=== PATIENT | male | born 1985 | race Caucasian/White ===

== ENCOUNTER 2023-07-27 08:47 | Outpatient (CLI) | payer OTHER, SELFPAY ==
[2023-07-27 12:52] LABS: Semen Viscosity Increased (Not Increa.)
[2023-07-27 12:53] LABS: Semen Color Opaque (Grey-opaque); Semen Immotility 20 %; Semen Non-Progressive Motility 20 %; Semen Progressive Motility 60 % (>32); Semen Total Motility 80 (>40% (PM+NP))
[2023-07-27 12:54] LABS: Semen Morphology Result to Follow; Sperm Count 121.5 Mil/mL (60-150 million/mL)
[2023-07-30 22:58] LABS: Fructose, Semen 421 mg/dL (150-600)
== END 2023-07-27 08:48 | disposition home or self-care (01) ==
PROVIDERS: PCP Family Medicine; Visit Provider Family Medicine
DX: N46.9 Male infertility, unspecified (principal)
CPT/HCPCS: 82757; 88160; 89320

== ENCOUNTER 2023-08-17 14:47 | Emergency (ER) | payer OTHER, SELFPAY ==
[2023-08-17 15:10] VITALS: BP 140/82; PULSE 97; RESP 18; TEMP 36.2; O2SAT 98
--- NOTE | 2023-08-17 16:02 | ED.URI ---
HPI - URI/Sore Throat General Chief Complaint: Upper Respiratory Infection Stated Complaint: sorethroat,bilateral ear discomfort Time Seen by Provider: 08/17/23 15:56 Source: patient and RN notes reviewed Mode of arrival: ambulatory Limitations: no limitations History of Present Illness HPI Narrative: Patient presents today with a one-week history of sore throat, bilateral ear pain, pressure, and muffling, postnasal drip, nasal congestion. Denies fever. Has tried Mucinex with mild relief. Currently rates his pain 2/10. Related Data Home Medications Medication Instructions Recorded Confirmed lisinopril 30 mg tablet 30 mg AC 08/17/23 08/17/23 Allergies Allergy/AdvReac Type Severity Reaction Status Date / Time No Known Allergies Allergy Verified 08/17/23 15:41 Review of Systems Review of Systems: CONSTITUTIONAL: Denies body aches, fever, chills, or sweats. EYES: Denies visual changes, redness, or discharge. ENT: Denies rhinorrhea. + congestion, postnasal drip, bilateral ear pain and pressure, sore throat CARDIOVASCULAR: Denies chest pain, palpitations, or edema. RESPIRATORY: Denies cough or dyspnea. GASTROINTESTINAL: Denies abdominal pain, nausea, vomiting, or diarrhea. GENITOURINARY: Denies dysuria or hematuria. SKIN: Denies rash, itching, or wounds. MUSCULOSKELETAL: Denies back pain, joint pain, or myalgia. NEUROLOGIC: Denies headache, numbness, tingling, or weakness. PSYCH: Denies depression or anxiety. PMFSH Comments At time of signature, I have reviewed and agree with nursing past medical, surgical, social and family history unless otherwise noted. Please see nursing chart for further information. There is no relevant family history pertinent to the presenting complaint Exam Narrative: GENERAL: Well-appearing, well-nourished, and in no acute distress. HEAD: Normocephalic, atraumatic. EYES: EOMI. No redness or drainage. Conjunctivae normal. ENT: Mucous membranes pink and moist. Nares congested. No rhinorrhea. Right TM normal. Left TM erythematous. Throat mildly erythematous without edema or exudate. Uvula midline. NECK: Normal AROM. Supple. No lymphadenopathy. CHEST: No respiratory distress. Clear to auscultation. HEART: Regular rate and rhythm. No murmur appreciated. EXTREMITIES: Normal range of motion. No edema. SKIN: Warm, dry, no rash. Capillary refill normal. Normal skin turgor. NEURO: No focal deficits. Alert and oriented x3. Gait steady. PSYCH: Normal affect. No signs of depression or anxiety. Course Course Level of Care: Express Care Visit Vital Signs Vital signs: Vital Signs Temperature 97.2 F L 08/17/23 15:10 Pulse Rate 97 08/17/23 15:10 Respiratory Rate 18 08/17/23 15:10 Blood Pressure 140/82 08/17/23 15:10 Pulse Oximetry 98 08/17/23 15:10 Oxygen Delivery Room Air 08/17/23 15:10 Temperature 97.2 F L 08/17/23 15:10 Pulse Rate 97 08/17/23 15:10 Respiratory Rate 18 08/17/23 15:10 Blood Pressure 140/82 08/17/23 15:10 Pulse Oximetry 98 08/17/23 15:10 Oxygen Delivery Room Air 08/17/23 15:10 Reviewed MDM - URI/Sore Throat MDM Narrative Medical decision making narrative: Patient will be treated with Augmentin for left otitis media. No testing indicated at this time. Anticipatory guidance given. Differential Diagnosis Differential diagnosis: Likely upper respiratory infection, otitis media, sinusitis and viral infection Critical Care Time Critical Care Time Critical Care Time: No Discharge Plan Discharge Clinical Impression: Acute left otitis media Upper respiratory infection Qualifiers: URI type: unspecified URI Qualified Code(s): J06.9 - Acute upper respiratory infection, unspecified Patient Disposition: Home, Self-Care Condition: Stable Instructions: Antibiotic Form, Ear Infection (GEN), Upper Respiratory Infection (DC) Additional Instructions: Please take the Augmentin as prescribed until gone. C
== END 2023-08-17 16:13 | disposition home or self-care (01) ==
PROVIDERS: Emergency Provider Nurse Practitioner; PCP Family Medicine
DX: H66.92 Otitis media, unspecified, left ear (principal); J06.9 Acute upper respiratory infection, unspecified
CPT/HCPCS: 99213; G0463

== ENCOUNTER 2025-03-31 10:45 | Emergency (ER) | payer OTHER, SELFPAY ==
--- OUTSIDE RECORDS SUMMARY | 2025-03-31 10:50 | XMS_ITS | Clinical Summary ---
Author Organization [facility] Address [facility] [place] [address] Care Team Providers Care Hydraulic Engineer Name Role Phone Nick Bailey MD Primary Care Provider [phone] Allergies Active Allergy Reactions Criticality Noted Date Comments Poison Reina Extract Rash Low 03/07/2020 Medications lisinopril (PRINIVIL) 30 MG tablet Take 1 tablet (30 mg total) by mouth daily. 01/29/2023 Active Active Problems No known active problems Encounters Date Type Department Care Team Description 03/16/2025 12:29 PM CDT - 03/16/2025 1:54 PM CDT Emergency [facility] Emergency Room [address] [place] [address] Samantha Sultana MD Confirmed Coronavirus (Covid-19) Discharge Disposition: Home or Self Care (Routine Discharge) 03/16/2025 Travel from Last 3 Months Family History Medical History Relation Comments Hypertension Father Relation Status Comments Father Alive Mother Alive Social History Tobacco Use Types Packs/Day Years Used Date Smoking Tobacco: Never Passive Smoke Exposure: Never Smokeless Tobacco: Never Alcohol Use Standard Drinks/Week Comments Not Currently 0 (1 standard drink = 0.6 oz pur e alcohol) socially PHQ-2 Answer Date Recorded Patient Health Questionnaire-2 Score 0 09/08/2023 Sex and Gender Information Value Date Recorded Sex Assigned at Male 03/16/2025 12:51 PM CDT Legal Sex Male 7:28 PM CDT Gender Identity Not on file Sexual Orientation Not on file 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 file Not on file Not on file Last Filed Vital Signs Vital Sign Reading Time Taken Comments Blood Pressure 148/91 03/16/2025 12:35 PM CDT Pulse 89 03/16/2025 12:35 PM CDT Temperature 38.2 C (100.7 F) 03/16/2025 1:00 PM CDT Respiratory Rate 18 03/16/2025 1:00 PM CDT Oxygen Saturation 98% 03/16/2025 1:00 PM CDT Inhaled Oxygen Concentration - - Weight 113 kg (249 lb 1.9 oz) 03/16/2025 12:35 P M CDT Height 177.8 cm (5' 10) 03/16/2025 12:35 PM CDT Body Mass Index 35.74 03/16/2025 12:35 PM CDT Plan of Treatment Health Maintenance Due Date Last Done Comments Annual Physical 1988 Hepatitis C 2003 DTaP, Tdap and Td Vaccines (1 - Tdap) 2004 02/02/1991, 03/20/1989, 06/05/1988, Additional history exists HPV Vaccines (1 - 3-dose SCDM series) 2012 COVID-19 Vaccine ( season) 2024 05/31/2023, 09/03/2021, 12/09/2020, Additional history exists Hepatitis B Vaccines Completed 03/16/2000, 10/14/1999, 09/09/1999 Meningococcal B Vaccine Aged Out No l onger eligible based on patient's age to complete this topic Meningococcal Vaccine Aged Out No marlin vika eligible based on patient's age to complete this topic Pneumococcal Vaccine: Pediatrics (0 to 5 Years) and At-Risk Patients (6 to 49 Years) Aged Out No longer eligible based on patient's age to complete this topic RSV Immunizations Under 20 Months Aged Out No longer eligible based on patient's age to complete this topic Procedures Procedure Name Priority Date/Time Associated Diagnosis Comments CBC W/DIFF AUTOMATED STAT 03/16/2025 12:55 PM CDT BASIC METABOLIC PANEL STAT 03/16/2025 12:55 PM CDT CORONAVIRUS (COVID 19) STAT 03/16/2025 12:52 PM CDT INFLUENZA A & B STAT 03/16/2025 12:52 PM CDT from Last 3 Months Results * (ABNORMAL) BASIC METABOLIC PANEL (03/16/2025 12:55 PM CDT) GLUCOSE 99 70 - 99 MG/DL 03/16/2025 1:11 PM CDT [facility] BUN 12 7 - 18 MG/DL 03/16/2025 1:11 PM CDT [facility] CREATININE S/P/B 0.99 0.7 - 1.3 MG/DL 03/16/2025 1:11 PM CDT [facility] SODIUM S/P/B 138 136 - 145 MMOL/L 03/16/2025 1:11 PM T [facility] POTASSIUM S/P/B 4.3 3.5 - 5.1 MMOL/L 03/16/2025 1:11 PM T [facility] CHLORIDE S/P/B 105 100 - 108 MMOL/L 03/16/2025 1:11 PM T [facility] CO2 29.4 21 - 32 MMOL/L 03/16/2025 1:11 PM T [facility] CALCIUM S/P/B 8.6 8.5 - 10.1 MG/DL 03/16/2025 1:11 PM T [facility] ANION GAP 3.6(L) 5 - 15 MMOL/L 03/16/2025 1:11 PM T [facility] BUN CREATININE RATIO 12.1 6 - 26 03/16/2025 1:11 PM T [facility] GFR ESTIMATE >90 >90 ML/MIN/1.7 3 M2 03/16/2025 1:11 PM T [facility] Comment: NOTE: eGFR is not calculated for patients <18 years of age. This is an estimated GFR calculation using the new CKD EPI creatinine equation without race and so does not require a correction factor for race. This estimated GFR should not be used for calculating drug doses. 03/16/2025 12:5 5 PM CDT us Samantha Sultana MD LABORATORY Final Resu lt [facility] [address] [facility] [place] [address], [place] [phone] * (ABNORMAL) CBC W/DIFF AUTOMATED (03/16/2025 12:55 PM CDT) WBC 7.22 4.4 - 11.0 x10'3/uL 03/16/2025 1:02 PM CDT [facility] RBC 4.45(L) 4.50 - 5.90 x10'6/uL 03/16/2025 1:02 PM CDT [facility] HGB 13.4(L) 14.0 - 17.5 G/DL 03/16/2025 1:02 PM CDT [facility] HCT 39.6(L) 41.5 - 50.4 % 03/16/2025 1:02 PM CDT [facility] MCV 89.0 80.0 - 96.0 FL 03/16/2025 1:02 PM CDT [facility] MCH 30.1 26.5 - 31.4 PG 03/16/2025 1:02 PM CDT [facility] MCHC 33.8 31.9 - 34.8 G/DL 03/16/2025 1:02 PM CDT [facility] RDW 12.7 12.3 - 14.3 % 03/16/2025 1:02 PM CDT [facility] PLT 189 151 - 353 x10'3/uL 03/16/2025 1:02 PM CDT [facility] MPV 9.3(L) 9.7 - 11.9 FL 03/16/2025 1:02 PM CDT [facility] RBC MORPHOLOGY NORMAL 03/16/2025 1:02 PM CDT [facility] PLT MORPH. NORMAL 03/16/2025 1:02 PM CDT [facility] WBC MORPHOLOGY NORMAL 03/16/2025 1:02 PM CDT [facility] LYMPHOCYTES % 12.3(L) 15.8 - 45.0 % 03/16/2025 1:02 PM CDT [facility] NEUTROPHILS % 76.8(H) 42.1 - 71.9 % 03/16/2025 1:02 PM CDT [facility] MONOCYTES % 7.8 5.7 - 12.5 % 03/16/2025 1:02 PM CDT [facility] EOSINOPHILS 2.4 0.0 - 5.6 % 03/16/2025 1:02 PM CDT [facility] BASOPHILS 0.4 0.0 - 1.3 % 03/16/2025 1:02 PM CDT [facility] ABS. NEUTROPHILS 5.55 1.40 - 6.00 x10'3/uL 03/16/2025 1:02 PM CDT [facility] IMMATURE GRANS % 0.3 0.0 - 0.5 % 03/16/2025 1:02 PM CDT [facility] ABS. LYMPHOCYTES 0.89 0.80 - 4.70 x10'3/uL 03/16/2025 1:02 PM CDT [facility] 03/16/2025 12:5 5 PM CDT us Samantha Sultana MD LABORATORY Final Resu lt [facility] [address] [place] [address], [place] [phone] * (ABNORMAL) CORONAVIRUS (COVID-19) MOLECULAR (03/16/2025 12:52 PM CDT) Pathologist [facility] CORONAVIRUS SARS COV 2 RNA POSITIVE( AA) NEGATIVE 03/16/2025 1:15 PM CDT [facility] Comment: THE ID NOW COVID-19 2.0 TEST HAS BEEN AUTHORIZED BY THE FDA UNDER EAU FOR USE BY AUTHORIZED LABORATORIES. PERFORMED BY NUCLEIC ACID AMPLIFICATION FOR MOLECULAR QUALITATIVE DETECTION OF SARS-COV-2. SPECIMEN TYPE NASAL 03/16/2025 12:52 PM CDT [facility] NASOPHARYNGEAL SWAB / Unknown 03/16/2025 12:52 PM CDT us Samantha Sultana MD MICROBIOLOGY - GENERAL ORD ERABLES Final Result Performing Organization Address City/[facility]/ZIP Co de Phone Number [facility] [address] [place] [address], [place] [phone] * INFLUENZA A & B (03/16/2025 12:52 PM CDT) [facility] SPECIMEN TYPE [phone] 03/16/2025 1:19 PM CDT [facility] INFLUENZA A NEGATIVE NEGATIVE 03/16/2025 1:19 PM CDT [facility] INFLUENZA B NEGATIVE NEGATIVE 03/16/2025 1:19 PM CDT [facility] NASAL NASOPHARYNGEAL SWAB / Unknown 03/16/2025 12:52 PM CDT us Samantha Sultana MD MICROBIOLOGY - GENERAL ORD ERABLES Final Result Performing Organization Address City/[facility]/ZIP Co de Phone Number [facility] [address] [place] [address], [place] [phone] from Last 3 Months Additional Health Concerns Infection Onset Date Last Indicated COVID-19 Confirmed 03/16/2025 03/16/2025 Insurance [facility] Care Teams Hydraulic Engineer Relationship Specialty Start Date End Date Nick Bailey MD [address] [facility] [place] [address] PCP - General FAMILY PRACTICE 03/07/20
--- OUTSIDE RECORDS SUMMARY | 2025-03-31 10:50 | XMS_ITS | Encounter Summary ---
Author Organization [facility] Address [address] [place] [address] Care Team Providers Care Trade Mark Attorney Name Role Phone Nick Bailey MD Primary Care Provider [phone] Nick Bailey MD Unavailable Encounter Details Date Type Department Care Team (Late st Contact Info) Description 06/21/2020 Lab Requisition [facility] [address] [facility] [place] [id number] Joy Shah MD [address] 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 Gender Identity Not on file Sexual Orientation Not on file documented as of this encounter Plan of Treatment Not on file documented as of this encounter Procedures Procedure Name Priority Date/Time Associated Diagnosis Comments DERMATOPATHOLOGY Routine 06/21/2020 12:0 0 AM CDT documented in this encounter Results * DERMATOPATHOLOGY (06/21/2020 12:00 AM CDT) Case Report Dermatopathology Report Case: [id number] Authorizing Provider: Joy Shah MD Collected: 06/21/2020 12:00 AM Ordering Location: [facility] Received: 06/21/2020 11:13 AM Pathologist: Sarah Ontiveros MD Specimen: Skin, left knee 0 3:24 PM CDT DERMATOPATHOLOGY LABORATORY Final Diagnosis Specimen A. 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 0 3:24 PM CDT DERMATOPATHOLOGY LABORATORY Gross Description Specimen A: Received is one formalin filled container labeled with the patient's name and designated left knee. The specimen consists of a shave measuring [id number]. Jar 0. 0 3:24 PM CDT DERMATOPATHOLOGY LABORATORY Microscopic Description Specimen A. SKIN, left knee: This is a dome-shaped lesion in which homogenized eosinophilic ribbons of collagen interweave and intervening spindled fibroblast with scattered pleomorphic ones that are highlighted on Factor XIIIA and focally with CD68. MART-1/Melan A does hot highlight the spindled cells. There is a brisk lymphohistiocytic infiltrate within the dermis. 0 3:24 PM CDT DERMATOPATHOLOGY LABORATORY Disclaimer An external and internal positive and negative controls are appropriate for the histochemical, immunohistochemical and immunofluorescence stain(s) in this case (if any), except where stated explicitly. The performance characteristics of the stain(s) cited in this report were developed and its performance characteristic determined by the Dermatopathology Laboratory at [facility], directed by Dr. Yadi Ontiveros. These tests need not be, and therefore are not, approved by the [place] Food and Drug Administration. The tests are used for clinical purposes. Billing Codes Specimen Charges Stain Charges 54851 1 75183 [id number] 1 1 1 0 3:24 PM CDT DERMATOPATHOLOGY LABORATORY Embedded Images 0 3:24 PM CDT DERMATOPATHOLOGY LABORATORY Pathology/Cytolog y TISSUE SPECIMEN FROM SKIN / Unknown 06/21/2020 06/21/2020 11:13 AM CDT Joy Shah MD LAB - PATHOLOGY/CYTOLOGY ORD ERABLES Final Result DERMATOPATHOLOGY LABORATORY [facility] - Department of Dermatology [facility] [address] [place] [address], [address] [phone] documented in this encounter Visit Diagnoses Not on filedocumented in this encounter Care Teams Trade Mark Attorney Relationship Specialty Start Date End Date Nick Bailey MD [address] [place] [address] PCP - General Family Medicine 01/30/17 Nick Bailey MD [address] [place] [address] 01/30/17 documented as of this encounter
--- OUTSIDE RECORDS SUMMARY | 2025-03-31 10:50 | XMS_ITS | Clinical Summary ---
Author Organization [facility] Address [address] [facility] [place] [address] Care Team Providers Care Rayon Winder Name Role Phone Nick Bailey MD Primary Care Provider [phone] Nick Bailey MD Unavailable Source Comments [facility],non-owned Affiliates and Associated Physician Practices is amultiple site organization consisting of ambulatory clinics and hospital sitesin [place], [place], [place] and [place]. This disclosure is being madepursuant to the Care Everywhere program and may not contain all information available regarding this patient. Last updated 18.[facility] Allergies No known active allergies Medications * Be aware that medications may not be up to date on this document. Alwaysverify current medications with the patient. methylPREDNISol one (MEDROL DOSEPAK) 4 MG tabletIndicatio ns:Acute maxillary sinusitis, recurrence not specified Take by mouth as directed Use dose pack of 4mg tabs, start 24 mg/day, taper by 4mg/day over 6 days per pkg instructions. Take with food. 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 Gender Identity Not on file Sexual Orientation Not on file Last Filed Vital Signs Vital Sign Reading Time Taken Comments Blood Pressure 140/88 02/03/2020 3:34 PM CDT Pulse 70 02/03/2020 3:34 PM CDT Temperature 36.8 C (98.3 F) 02/03/2020 3:34 PM CDT Respiratory Rate 20 02/03/2020 3:34 PM CDT Oxygen Saturation 99% 01/30/2018 10:24 AM CDT Inhaled Oxygen Concentration - - Weight 99.8 kg (220 lb) 01/30/2018 10:24 AM CDT Height 177.8 cm (5' 10) 01/30/2018 10:24 AM CDT Body Mass Index 31.57 01/30/2018 10:24 AM CDT Plan of Treatment Health Maintenance Due Date Last Done Comments HIV SCREENING 2000 HEPATITIS C SCREENING 07/22/2003 DTAP/TDAP/TD VACCINES (1 - Tdap) 2004 HEPATITIS B VACCINE (1 of 3 - 19+ 3-dose series) 2004 HPV VACCINE (1 - 3-dose SCDM series) 2012 COVID-19 VACCINE (1 - 2023-2 5 season) 2024 DEPRESSION SCREENING 08/31/2024 INFLUENZA VACCINE (#1) 2025 ZOSTER VACCINE (1 of 2) 2035 HIB VACCINE Aged Out No longer eligi ble based on patient's age to complete this topic MENINGOCOCCAL (Group B) VACC INE SHARED DECISION-MAKING Aged Out No longer eligibl e based on patient's age to complete this topic MENINGOCOCCAL GROUPS A/C/Y/W VACCINE Aged Out No longer eligible b ased on patient's age to complete this topic PNEUMOCOCCAL VACCINE Aged Out No long er eligible based on patient's age to complete this topic Insurance [employer] Care Teams Rayon Winder Relationship Specialty Start Date End Date Nick Bailey MD [address] [place] [id number] PCP - General Family Medicine 01/30/17 Nick Bailey MD [address] [place] [address] 01/30/17
[2025-03-31 10:56] VITALS: BP 130/76; PULSE 79; RESP 14; TEMP 36.6; O2SAT 100
--- NOTE | 2025-03-31 11:03 | ED_ITS ---
HPI - Skin/Abscess/Foreign Bdy General Chief complaint: Skin/Abscess/Foreign Body Stated complaint: Rash Time Seen by Provider: 03/31/25 11:03 Source: patient Mode of arrival: ambulatory Limitations: no limitations History of Present Illness HPI narrative: 39 yo M presents with c/o poison reina rash for 2 wks. Works outdoors. Started to R thigh, continues to spread to other areas on body. all systems reviewed and negative except as noted above. Related Data Home Medications ?Medication ?Instructions ?Recorded ?Confirmed ?Last Taken ?Type lisinopril 30 mg tablet 30 mg AC 08/17/23 08/17/23 Unknown History metformin 500 mg tablet mg 03/31/25 Unknown History semaglutide 1 mg/dose (4 mg/3 mL) mg subcut 03/31/25 Unknown History subcutaneous pen injector (Ozempic) Allergies Allergy/AdvReac Type Severity Reaction Status Date / Time No Known Allergies Allergy Verified 03/31/25 10:58 PMFSH Comments At time of signature, agree with nursing past medical, surgical, social and family history. There is no relevant family history pertinent to the presenting complaint. Exam Narrative: GENERAL: This is a well-nourished, well-developed patient, in no apparent distress. HEAD: normocephalic, atraumatic. EYES: PERRL. Sclera clear/white. Vision is grossly intact. EARS: External ears normal NOSE: External nose normal NECK: Neck supple, non-tender without lymphadenopathy, masses or thyromegaly. CARDIOVASCULAR: Regular rate and rhythm without murmurs, gallops, or rubs. RESPIRATORY: Clear to auscultation. Breath sounds equal bilaterally. No wheezes, rales, or rhonchi. SKIN: warm, Dry, intact , good texture and turgor. erythematous vesicular rash to torso, bilateral upper and lower extremities. none to face. NEURO: awake, alert, and oriented to person, place and time. There were no obvious focal neurologic abnormalities. EXTREMITIES: No joint tenderness, effusion, or edema noted. Course Course Level of Care: Express Care Visit Vital Signs Vital signs: Vital Signs Temperature 36.6 C 03/31/25 10:56 Pulse Rate 79 03/31/25 10:56 Respiratory Rate 14 03/31/25 10:56 Blood Pressure 130/76 03/31/25 10:56 Pulse Oximetry 100 03/31/25 10:56 Oxygen Delivery Room Air 03/31/25 10:56 Temperature 36.6 C 03/31/25 10:56 Pulse Rate 79 03/31/25 10:56 Respiratory Rate 14 03/31/25 10:56 Blood Pressure 130/76 03/31/25 10:56 Pulse Oximetry 100 03/31/25 10:56 Oxygen Delivery Room Air 03/31/25 10:56 reviewed MDM - Skin/Abscess/Foreign Bdy MDM Narrative Medical decision making narrative: will treat poison reina reaction with prednisone taper and triamcinolone. pt has done similar reaction in the past for poison reina rash. Discharge Plan Discharge Clinical Impression: Dermatitis due to plants, including poison reina, sumac, and oak Patient Disposition: Home Condition: Stable Instructions: Poison Reina (ED) Additional Instructions: take medication as prescribed. Apply prescription steroid cream to poison reina rash, avoid face. Take a daily antihistamine such as Claritin or Zyrtec. See your doctor if rash is not improving. Patient Language: Amharic Prescriptions: New prednisone 10 mg tablet See Rx Instructions .ROUTE .COMPLEX Qty: 42 0RF Rx Instructions: Take 6 tablets for 2 days Take 5 tablets for 2 days Take 4 tablets for 2 days Take 3 tablets for 2 days Take 2 tablets for 2 days Take 1 tablet for 2 days triamcinolone acetonide 0.1 % cream 1 applic topical BID Qty: 80 0RF No Action lisinopril 30 mg tablet 30 mg AC metformin 500 mg tablet Ozempic 1 mg/dose (4 mg/3 mL) pen injector SUBCUT Follow-up/Referrals: Lynn,Nick Moseley MD [Primary Care Provider] - Time of Disposition: 11:10
== END 2025-03-31 11:13 | disposition home or self-care (01) ==
PROVIDERS: Emergency Provider Nurse Practitioner Family; PCP Family Medicine
DX: L23.7 Allergic contact dermatitis due to plants, except food (principal); Z79.84 Long term (current) use of oral hypoglycemic drugs; Z79.899 Other long term (current) drug therapy
CPT/HCPCS: 99213; G0463